=== PATIENT | male | born 1930 | race Two or more races ===

== ENCOUNTER 2017-06-28 10:17 | Inpatient (IN) | payer MEDICARE, BC ==
[~2017-06-28] VITALS: Ht 185.4 cm; Wt 79.6 kg
[2017-06-28 10:43] LABS: BASOPHILS # (AUTO) 0.4 /CMM (0.0-0.2); BASOPHILS % (AUTO) 2.2 % (0.0-2.0); EOSINOPHILS # (AUTO) 0.1 /CMM (0.0-0.7); EOSINOPHILS % (AUTO) 0.8 % (0.0-6.0); HEMATOCRIT 43 % (39-51); HEMOGLOBIN 14.6 g/dL (13.5-17.5); LYMPHOCYTES # (AUTO) 1.3 /CMM (0.8-4.8); LYMPHOCYTES % (AUTO) 7.2 % (20.0-44.0); MEAN CORPUSCULAR HEMOGLOBIN 33 PG (26.0-33.0); MEAN CORPUSCULAR HGB CONC 34 g/dl (31.0-36.0); MEAN CORPUSCULAR VOLUME 95 fL (80-96); MONOCYTES # (AUTO) 1.8 /CMM (0.1-1.30); MONOCYTES % (AUTO) 9.9 % (2.0-12.0); NEUTROPHILS # (AUTO) 14.4 /CMM (1.8-8.9); NEUTROPHILS % (AUTO) 79.9 % (43.0-81.0); PLATELET COUNT (AUTO) 445 /CMM (150-450); RDW COEFFICIENT OF VARIATION 11.9 (11.5-15.0); RED BLOOD CELL COUNT(AUTO) 4.51 MIL/uL (4.5-6.0)
--- NOTE | 2017-06-28 11:00 | NUR ---
GUERITA 86 FROM [facility], [place] FOR CP SINCE 0900 YESTERDAY, NAD NOTED, VSS, RESP EVEN AND UNLABORED, PT PUT ON GOWN AND MONITOR, AT .
[2017-06-28 11:12] LABS: PROTHROMBIN TIME 10.4 SECS (9.5-12.7)
[2017-06-28 11:15] LABS: ALANINE AMINOTRANSFERASE 13 U/L (12-78); ALBUMIN 2.5 g/dL (3.4-5.0); ALKALINE PHOSPHATASE 137 U/L (46-116); ASPARTATE AMINOTRANSFERASE 34 U/L (15-37); BILIRUBIN,TOTAL 0.5 mg/dL (0.2-1.0); CALCIUM, SERUM 9.9 mg/dL (8.5-10.1); CARBON DIOXIDE 32 mmol/L (21-32); CHLORIDE 103 mmol/L (98-107); GLUCOSE 151 mg/dL (74-106); POTASSIUM 3.5 mmol/L (3.5-5.1); SODIUM SERUM 139 mmol/L (136-145); TOTAL PROTEIN, SERUM 7.2 g/dL (6.4-8.2); UREA NITROGEN, BLOOD 24 mg/dL (7-18)
--- NOTE | 2017-06-28 11:20 | NUR ---
xray at bs
--- NOTE | 2017-06-28 12:02 | NUR ---
PT UNABLE TO PROVIDE URINE AT THIS MOMENT
[2017-06-28] MEDS ORDERED: AZITHROMYCIN 250 MG TABLET PO ONE (13:00)
[2017-06-28] MEDS ORDERED: AZITHROMYCIN 250 MG TABLET ONE ×2 (13:00→13:15)
--- NOTE | 2017-06-28 13:03 | NUR ---
URINE SENT TO LAB
[2017-06-28] MEDS ORDERED: ASPIRIN 325 MG TABLET PO ONE (13:30)
[2017-06-28 13:33] LABS: APPEARANCE,URINE Clear (CLEAR); BILIRUBIN,URINE Negative (NEGATIVE); BLOOD, URINE Negative Ery/uL (NEGATIVE); COLOR,URINE Yellow (YELLOW); KETONES,URINE Negative (NEGATIVE); LEUKOCYTE ESTERASE ,URINE Negative (NEGATIVE); NITRITE, URINE Negative (NEGATIVE); PH,URINE 5.5 (5.0-8.0); PROTEIN,URINE Negative (NEGATIVE); UGLUCOSE Negative (NEGATIVE); UROBILINOGEN,URINE 0.2 EU/dL (0.2)
[2017-06-28] MEDS ORDERED: ASPIRIN 325 MG TABLET ONE (13:57)
[2017-06-28] MEDS ORDERED: HYDROMORPHONE 1 MG/1 ML DISP.SYRIN ONE (13:58)
[2017-06-28] MEDS ORDERED: ONDANSETRON HCL/PF 4 MG/2 ML VIAL ONE (13:58)
[2017-06-28] MEDS ORDERED: HYDROMORPHONE 1 MG/1 ML DISP.SYRIN IV ONE (14:00)
[2017-06-28] MEDS ORDERED: ONDANSETRON HCL/PF 4 MG/2 ML VIAL IV ONE (14:00)
--- NOTE | 2017-06-28 16:40 | NUR ---
CALLED [facility], RN WILL CALL BACK
--- NOTE | 2017-06-28 16:46 | NUR ---
REPORT GIVEN TO ULI VELEZ FOR LUPIS
[2017-06-28 17:00] VITALS: BP 138/83
--- NOTE | 2017-06-28 17:00 | NUR ---
POLISHING WHEEL REPAIRER NOTES PATIENT ADMITTED FROM ER TELE SR-96, MALE 86Y/OLD ON DX OF PNEUMONIA, CHEST PAIN. PATIENT A/O X3/4, C/O PAIN LEFT SIDE 2/3 WHEN MOVES, IV ACCESS LINE AC AREA INTACT, SKIN ASSESSMENT DONE EDEMA LOWE BILATERAL FOOTS. PICTURE TAKEN, V/S TAKEN BP-138/83, P-88, R-20, O2-94 ROOM AIR, T-99.2. BELONGING CHECKED, NEEDS ATTENDED AND ANTICIPATED, CALL LIGHT WITHIN TO REACH, FAMILY NEXT TO THE BED. CONTINUED MONITORING.
--- NOTE | 2017-06-28 18:30 | NUR ---
RN NOTES PATIENT IN THE BED, NO ACUTE RESPIRATORY DISTRESS, PATIENT C/O PAIN 2/3 DULL LEFT FLANK AREA WHEN MOVED. PATIENT USING URINAL, NEEDS ATTENDED AND ANTICIPATED, FAMILY NEXT TO THE BED, CALL LIGHT WITHIN TO REACH. SAFETY PRECAUTION MAINTAINED ALL THE TIME. ENDORSED ONCOMING NURSE FOR CONTINUATION OF CARE.
--- NOTE | 2017-06-28 19:30 | NUR ---
FOOD SERVICE CLERK NOTES RECEIVED ON BED A/O X2-3,BREATHING NON LABORED,APPEARS CONGESTED,CRACKLES ON AUSCULTATION,SALINE LOCK LEFT AC INTACT AND PATENT.NO SKIN ISSUES.FAMILY MEMBERS AT BEDSIDE.AWAITING ADMIT ORDERS.
[2017-06-28] MEDS ORDERED: CARB-93 PO (20:31)
[2017-06-28] MEDS ORDERED: DULO20CA PO (20:31)
[2017-06-28] MEDS ORDERED: PHEN100C4 PO (20:31)
[2017-06-28] MEDS ORDERED: HYDR25TA4 PO (20:31)
[2017-06-28] MEDS ORDERED: FOLI1TAB16 PO (20:31)
[2017-06-28 20:33] VITALS: BP 137/74
[2017-06-28] MEDS ORDERED: DULOXETINE HCL 20 MG CAPSULE.DR ONE (20:54)
[2017-06-28] MEDS ORDERED: KETOROLAC TROMETHAMINE INJ 30 MG/ML VIAL IV PRN (21:00)
[2017-06-28] MEDS ORDERED: DULOXETINE HCL 30 MG CAPSULE.DR PO SCH (21:00)
[2017-06-28] MEDS ORDERED: HYDROCODONE/APAP 5/325MG 1 EACH TABLET PO PRN (21:00)
[2017-06-28] MEDS ORDERED: IPRATROPIUM NEB FS 0.5 MG/2.5 ML AMPUL.NEB ONE (21:02)
[2017-06-28] MEDS ORDERED: ALBUTEROL HALF STRENGTH 1.25 MG/3 ML VIAL.NEB ONE (21:02)
[2017-06-28] MEDS: IPRATROPIUM NEB FS 0.5 MG/2.5 ML AMPUL.NEB NEB PRN (21:05)
[2017-06-28] MEDS: ALBUTEROL HALF STRENGTH 1.25 MG/3 ML VIAL.NEB NEB PRN (21:05)
[2017-06-28] MEDS ORDERED: KETOROLAC TROMETHAMINE INJ 30 MG/ML VIAL ONE (21:10)
[2017-06-28] MEDS ORDERED: IV NS 0.9% 1,000 ML IV PRN (21:17)
[2017-06-28] MEDS ORDERED: ONDANSETRON HCL/PF 4 MG/2 ML VIAL IVP PRN (21:30)
[2017-06-28] MEDS ORDERED: ACETAMINOPHEN 325 MG TABLET PO PRN (21:30)
[2017-06-28] MEDS: AZITHROMYCIN 500 MG in IV D5W 250 ML IV SCH (21:30)
[2017-06-28] MEDS ORDERED: Z GUARD REMEDY 2 OZ OINT TP PRN (21:30)
[2017-06-28] MEDS ORDERED: ENOXAPARIN SODIUM 40 MG/0.4 ML DISP.SYRIN SQ SCH (21:30)
--- NOTE | 2017-06-28 21:30 | NUR ---
FWS FACULTY ASSISTANT NOTES APPEARS CONGESTED,DUE BREATHING TREATMENT ADMINISTERED BY RT
[2017-06-28] MEDS ORDERED: PHENYTOIN EXTENDED RELEASE 100 MG CAPSULE PO ONE (21:53)
[2017-06-28] MEDS: PHENYTOIN EXTENDED RELEASE 100 MG CAPSULE PO SCH (21:56)
[2017-06-28 22:00] VITALS: BP 137/74
--- NOTE | 2017-06-28 22:00 | NUR ---
GREEN CHAIN WORKER NOTES DUE ZITHROMAX IV HELD,ALREADY GIVEN PO 500MG IN ER
[2017-06-28] MEDS ORDERED: CEFTRIAXONE 1 G VIAL ONE (22:12)
[2017-06-28] MEDS ORDERED: ENOXAPARIN SODIUM 40 MG/0.4 ML DISP.SYRIN SQ ONE (22:13)
--- NOTE | 2017-06-28 22:15 | NUR ---
WELL DRILL OPERATOR ROTARY DRILL NOTES' STARTED ON LOVENOX 40MG,GIVEN SQ VIA LEFT LOWER ABDOMEN
[2017-06-28] MEDS: CEFTRIAXONE 1 G in IV D5W 50 ML IV SCH (22:17)
--- NOTE | 2017-06-28 22:17 | NUR ---
DETAIL SUPERVISOR NOTES STARTED ON ROCEPHIN 1GM IVPB .
[2017-06-29] VITALS (7 sets, daily range): BP systolic 121–152; BP diastolic 71–90
[2017-06-29 05:33] LABS: CHOLESTEROL 155 mg/dL (<200); HDL CHOLESTEROL 57 mg/dL (40-60); LDL 84 mg/dL (0-99); TRIGLYCERIDES 82 mg/dL (30-150)
[2017-06-29 05:37] LABS: ALANINE AMINOTRANSFERASE 65 U/L (12-78); ALBUMIN 2.6 g/dL (3.4-5.0); ALKALINE PHOSPHATASE 136 U/L (46-116); ASPARTATE AMINOTRANSFERASE 42 U/L (15-37); BILIRUBIN,TOTAL 0.7 mg/dL (0.2-1.0); CARBON DIOXIDE 32 mmol/L (21-32); CHLORIDE 104 mmol/L (98-107); CREATININE 1.1 mg/dL (0.6-1.3); GLUCOSE 106 mg/dL (74-106); PHOSPHORUS 2.7 mg/dL (2.5-4.9); POTASSIUM 4.4 mmol/L (3.5-5.1); SODIUM SERUM 143 mmol/L (136-145); TOTAL PROTEIN, SERUM 7.7 g/dL (6.4-8.2); UREA NITROGEN, BLOOD 23 mg/dL (7-18)
[2017-06-29 05:40] LABS: BASOPHILS # (AUTO) 0.1 /CMM (0.0-0.2); BASOPHILS % (AUTO) 0.3 % (0.0-2.0); EOSINOPHILS # (AUTO) 0.1 /CMM (0.0-0.7); EOSINOPHILS % (AUTO) 0.4 % (0.0-6.0); HEMATOCRIT 45 % (39-51); HEMOGLOBIN 15.1 g/dL (13.5-17.5); LYMPHOCYTES # (AUTO) 1.7 /CMM (0.8-4.8); LYMPHOCYTES % (AUTO) 8.2 % (20.0-44.0); MEAN CORPUSCULAR HEMOGLOBIN 32 PG (26.0-33.0); MEAN CORPUSCULAR HGB CONC 33 g/dl (31.0-36.0); MEAN CORPUSCULAR VOLUME 97 fL (80-96); MONOCYTES # (AUTO) 2.2 /CMM (0.1-1.30); MONOCYTES % (AUTO) 10.6 % (2.0-12.0); NEUTROPHILS % (AUTO) 80.5 % (43.0-81.0); PLATELET COUNT (AUTO) 420 /CMM (150-450); RED BLOOD CELL COUNT(AUTO) 4.68 MIL/uL (4.5-6.0); WHITE BLOOD COUNT (AUTO) 21.1 K/uL (4.3-11.0)
--- NOTE | 2017-06-29 07:00 | NUR ---
MS RN NOTES RESTING COMFORTABLY ON BED.DENIES CHEST PAIN,IVF INFUSING CALL LIGHT IN REACH,NEEDS ATTENDED.
--- NOTE | 2017-06-29 07:25 | NUR ---
CYLINDER DIE MACHINE OPERATOR OPENING NOTES PATIENT IS RESTING IN BED IN NO APPARENT DISTRESS. BEDSIDE RAILS ARE UP X2. BED IS LOCKED AND LOWERED. WILL CONTINUE TO MONITOR.
[2017-06-29] MEDS: FOLIC ACID 1 MG TABLET PO SCH (09:01)
[2017-06-29] MEDS: HYDROCHLOROTHIAZIDE 25 MG TABLET PO SCH (09:01)
[2017-06-29] MEDS: CARBIDOPA/LEVODOPA 25/100 MG 1 UDTAB PO SCH ×2 (09:02→16:10)
[2017-06-29] MEDS: IPRATROPIUM NEB FS 0.5 MG/2.5 ML AMPUL.NEB NEB PRN (10:05)
[2017-06-29] MEDS: ALBUTEROL HALF STRENGTH 1.25 MG/3 ML VIAL.NEB NEB PRN (10:05)
[2017-06-29] MEDS: DULOXETINE HCL 20 MG CAPSULE.DR PO SCH (11:25)
[2017-06-29] MEDS: PHENYTOIN EXTENDED RELEASE 100 MG CAPSULE PO SCH ×3 (11:27→22:00)
--- NOTE | 2017-06-29 19:04 | NUR ---
MS RN CLOSING NOTES PATIENT IS IN STABLE CONDITION IN NO APPARENT DISTRESS. BEDSIDE RAILS ARE UP X2. BED IS LOCKED AND LOWERED. CALL LIGHT IS WITHIN REACH. WILL ENDORSE CARE TO LAMINATED PLASTICS ASSEMBLER AND GLUER NURSE FOR LUPIS.
--- NOTE | 2017-06-29 19:10 | NUR ---
RN INITIAL NOTES PT IN BED, ASLEEP BUT CAN BE EASILY AWOKEN, NOTED WITH NO SOB, BREATHING EVEN AND UNLABORED, NO C/O PAIN AT THIS TIME, IN NO ACUTE DISTRESS. ALL PATIENT'S NEEDS ATTENDED TO. CALL LIGHT PLACED WITHIN EASY REACH. WILL CONTINUE TO MONITOR.
[2017-06-29] MEDS ORDERED: CEFTRIAXONE 1 G VIAL ONE (21:38)
[2017-06-29] MEDS ORDERED: AZITHROMYCIN 500 MG VIAL ONE (21:46)
[2017-06-29] MEDS: CEFTRIAXONE 1 G in IV D5W 50 ML IV SCH (21:57)
[2017-06-29] MEDS: ENOXAPARIN SODIUM 40 MG/0.4 ML DISP.SYRIN SQ SCH (21:59)
[2017-06-29] MEDS: AZITHROMYCIN 500 MG in IV D5W 250 ML IV SCH (22:44)
--- NOTE | 2017-06-29 22:59 | NUR ---
RN NOTES RECEIVED REPORT FROM AM SHIFT NURSE DILANTIN 100 MG WAS GIVEN IN AM. PATIENT'S ORDER IS TO RECEIVE 300 MG TOTAL IN 24HRS. CLARIFICATION OF ORDER RECEIVED TO ADMINISTER 200 MG X 1 DOSE TO COMPLETE 300 MG TOTAL FOR TODAY.
[2017-06-29] MEDS ORDERED: PHENYTOIN EXTENDED RELEASE 100 MG CAPSULE PO ONE (23:00)
[2017-06-30] VITALS: BP 127/81
[2017-06-30 04:00] VITALS: BP 137/81
--- NOTE | 2017-06-30 06:51 | NUR ---
RN CLOSING NOTES PATIENT IN BED, ALERT AND ORIENTED X 3, ABLE TO MAKE NEEDS KNOWN, NOTED WITH NO SOB, BREATHING EVEN AND UNLABORED. PATIENT WITH NO C/O PAIN AND IN NO ACUTE DISTRESS. ON TELE MONITORING WITH SR @ 85 BPM ALL PATIENT'S NEEDS ATTENDED TO. PATIENT IS AWARE OF SAFETY NEEDS. BED PLACED IN LOW POSITION, LOCKED IN PLACE. CALL LIGHT PLACED WITHIN EASY REACH.
--- NOTE | 2017-06-30 08:00 | NUR ---
RN OPENING NOTES PATIENT IN BED, AWAKE, VERBALLY RESPONSIVE, HOB ELEVATED .NO ACUTE DISTRESS NOTED. DENIED ANY PAIN AT THIS TIME. IV ACCESS PATENT AND INTACT. NO REDNESS, NO S/SX OF INFILTRATION NOTED. CALL LIGHT PLACED WITHIN REACH. SAFETY MEASURES IN PLACE. WILL CONTINUE TO MONITOR ACCORDINGLY.
[2017-06-30 08:14] LABS: BASOPHILS % (AUTO) 0.2 % (0.0-2.0); EOSINOPHILS # (AUTO) 0.2 /CMM (0.0-0.7); EOSINOPHILS % (AUTO) 0.9 % (0.0-6.0); HEMATOCRIT 44 % (39-51); HEMOGLOBIN 14.9 g/dL (13.5-17.5); LYMPHOCYTES # (AUTO) 1.8 /CMM (0.8-4.8); LYMPHOCYTES % (AUTO) 7.7 % (20.0-44.0); MEAN CORPUSCULAR HEMOGLOBIN 33 PG (26.0-33.0); MEAN CORPUSCULAR HGB CONC 34 g/dl (31.0-36.0); MEAN CORPUSCULAR VOLUME 95 fL (80-96); MONOCYTES % (AUTO) 8.7 % (2.0-12.0); NEUTROPHILS # (AUTO) 19.2 /CMM (1.8-8.9); NEUTROPHILS % (AUTO) 82.5 % (43.0-81.0); PLATELET COUNT (AUTO) 250 /CMM (150-450); RED BLOOD CELL COUNT(AUTO) 4.57 MIL/uL (4.5-6.0); WHITE BLOOD COUNT (AUTO) 23.2 K/uL (4.3-11.0)
[2017-06-30] MEDS: DULOXETINE HCL 20 MG CAPSULE.DR PO SCH (09:20)
[2017-06-30] MEDS: HYDROCHLOROTHIAZIDE 25 MG TABLET PO SCH (09:21)
[2017-06-30] MEDS: FOLIC ACID 1 MG TABLET PO SCH (09:22)
[2017-06-30] MEDS: CARBIDOPA/LEVODOPA 25/100 MG 1 UDTAB PO SCH ×2 (09:22→16:53)
[2017-06-30 09:28] LABS: CALCIUM, SERUM 9.7 mg/dL (8.5-10.1); CARBON DIOXIDE 31 mmol/L (21-32); CHLORIDE 103 mmol/L (98-107); CREATININE 0.8 mg/dL (0.6-1.3); GLUCOSE 115 mg/dL (74-106); MAGNESIUM 1.8 mg/dL (1.8-2.4); PHOSPHORUS 2.5 mg/dL (2.5-4.9); POTASSIUM 3.8 mmol/L (3.5-5.1); SODIUM SERUM 140 mmol/L (136-145); UREA NITROGEN, BLOOD 18 mg/dL (7-18)
[2017-06-30 10:04] VITALS: BP 144/77
[2017-06-30 11:23] LABS: EOSINOPHILS % (MANUAL) 1 % (0-4); LYMPHOCYTES % (MANUAL) 13 % (16-48); MONOCYTES % (MANUAL) 1 % (0-11.0); NEUTROPHILS % (MANUAL) 85 (42-76)
[2017-06-30 12:00] VITALS: BP 151/90
--- NOTE | 2017-06-30 18:00 | NUR ---
RN CLOSING NOTES PATIENT IN BED,EYES CLOSED, AROUSABLE, VERBALLY RESPONSIVE, HOB ELEVATED. NO SOB NOTED. NO ACUTE DISTRESS NOTED. DENIED ANY PAIN ,NO FACIAL GRIMACING NOTED. IV ACCESS PATENT AND INTACT. NO REDNESS, NO S/SX OF INFILTRATION NOTED. DUE MEDICATIONS GIVEN, NO ASE NOTED. NEEDS ATTENDED. CALL LIGHT PLACED WITHIN REACH. SAFETY MEASURES IN PLACE. WILL CONTINUE TO MONITOR ACCORDINGLY.WILL ENDORSE TO NATURAL RESOURCE SPECIALIST FOR CONTINUITY OF CARE.
[2017-06-30 20:00] VITALS: BP 147/66
--- NOTE | 2017-06-30 20:00 | NUR ---
MS RN OPENING NOTES: RECEIVED PATIENT IN BED, ASLEEP, EASILY AROUSES, NO COMPLAINS OF PAIN OR DISCOMFORT THIS TIME OF ASSESSMENT. PATIENT WITH IV HEPLOCK ON LEFT AC G#18- FLUSHING GOOD. REALITY ORIENTATION DONE. NO SIGNS OF REDNESS OR INFECTION ON SITE. NO PHLEBITIS NOTED THIS TIME. SAFETY AND FALL PRECAUTIONS OBSERVED. PATIENT IS WITH O2 AT 2LP VIA NASAL CANNULA, SATURATING AT 95%. KEPT PATIENT WARM AND DRY. WILL CONTINUE TO MONITOR PATIENT.
[2017-06-30] MEDS: PHENYTOIN EXTENDED RELEASE 100 MG CAPSULE PO SCH (22:03)
[2017-06-30] MEDS: ENOXAPARIN SODIUM 40 MG/0.4 ML DISP.SYRIN SQ SCH (22:06)
[2017-06-30] MEDS: CEFTRIAXONE 1 G in IV D5W 50 ML IV SCH (22:09)
[2017-06-30] MEDS: AZITHROMYCIN 500 MG in IV D5W 250 ML IV SCH (22:39)
--- NOTE | 2017-07-01 | NUR ---
MS RN NOTES: PATIENT IN BED, ASLEEP THIS TIME. NO SIGNS OF PAIN OR DISCOMFORT THIS TIME.
--- NOTE | 2017-07-01 06:46 | NUR ---
MS RN NOTES: PATIENT ON BED, AWAKE, NO COMPLAINS OF PAIN OR DISCOMFORT THIS TIME, HEPLOCK IN PLACE ON LEFT AC G#18. NO SIGNS OF INFILTRATION THIS TIME. WILL ENDORSE PATIENT TO DAY SHIFT NURSE.
--- NOTE | 2017-07-01 07:46 | NUR ---
RN OPENING NOTES RECIEVED PATIENT RESTING COMFORTABLY IN BED. AOX3. NO ACUTE DISTRESS. RESPIRATIONS EVEN AND UNLABORED. DENIES ANY PAIN, CP, AND SOB. THICKEN LIQUIDS REQUIRED. LAC 18G PATENT AND INTACT. SATURATING ADEQUATELY ON RA. BED LOCKED IN THE LOWEST POSITION WITH SIDE RAILS UP X2, CALL LIGHT WITHIN REACH. WILL CONTINUE TO MONITOR, ASSESS AND EDUCATE PATIENT THROUHGOUT SHIFT.
[2017-07-01 07:48] LABS: BASOPHILS # (AUTO) 0.1 /CMM (0.0-0.2); BASOPHILS % (AUTO) 0.3 % (0.0-2.0); EOSINOPHILS # (AUTO) 0.4 /CMM (0.0-0.7); EOSINOPHILS % (AUTO) 2.1 % (0.0-6.0); HEMATOCRIT 44 % (39-51); HEMOGLOBIN 14.9 g/dL (13.5-17.5); LYMPHOCYTES # (AUTO) 1.4 /CMM (0.8-4.8); LYMPHOCYTES % (AUTO) 8.4 % (20.0-44.0); MEAN CORPUSCULAR HEMOGLOBIN 33 PG (26.0-33.0); MEAN CORPUSCULAR HGB CONC 34 g/dl (31.0-36.0); MEAN CORPUSCULAR VOLUME 98 fL (80-96); MONOCYTES # (AUTO) 1.6 /CMM (0.1-1.30); MONOCYTES % (AUTO) 9.6 % (2.0-12.0); NEUTROPHILS # (AUTO) 13.4 /CMM (1.8-8.9); NEUTROPHILS % (AUTO) 79.6 % (43.0-81.0); PLATELET COUNT (AUTO) 386 /CMM (150-450); RDW COEFFICIENT OF VARIATION 12.7 (11.5-15.0); RED BLOOD CELL COUNT(AUTO) 4.46 MIL/uL (4.5-6.0); WHITE BLOOD COUNT (AUTO) 16.8 K/uL (4.3-11.0)
[2017-07-01 08:00] VITALS: BP 106/60
[2017-07-01 08:33] LABS: CARBON DIOXIDE 32 mmol/L (21-32); CHLORIDE 100 mmol/L (98-107); CREATININE 0.9 mg/dL (0.6-1.3); GLUCOSE 108 mg/dL (74-106); MAGNESIUM 1.9 mg/dL (1.8-2.4); PHOSPHORUS 2.5 mg/dL (2.5-4.9); POTASSIUM 3.4 mmol/L (3.5-5.1); SODIUM SERUM 136 mmol/L (136-145); UREA NITROGEN, BLOOD 20 mg/dL (7-18)
[2017-07-01] MEDS: FOLIC ACID 1 MG TABLET PO SCH (09:38)
[2017-07-01] MEDS: CARBIDOPA/LEVODOPA 25/100 MG 1 UDTAB PO SCH ×2 (09:38→16:57)
[2017-07-01] MEDS: DULOXETINE HCL 20 MG CAPSULE.DR PO SCH (09:38)
[2017-07-01] MEDS: HYDROCHLOROTHIAZIDE 25 MG TABLET PO SCH (09:52)
[2017-07-01] MEDS ORDERED: POTASSIUM CHLORIDE 20 MEQ TAB.PRT.SR PO SCH (10:30)
[2017-07-01] MEDS ORDERED: POTASSIUM CHLORIDE 20 MEQ TAB.PRT.SR PO ONE (11:00)
[2017-07-01 16:00] VITALS: BP 110/60
--- NOTE | 2017-07-01 19:30 | NUR ---
RN NOTES RECEIVED PATIENT IN BED AWAKE, AO X 3, ABLE TO MAKE NEEDS KNOWN. NO ACUTE DISTRESS. DENIES ANY PAIN AT THIS TIME. IV SITE PATENT, INTACT; FLUSHED. SAFETY REMINDERS GIVEN. ON LOW BED WITH BILATERAL UPPER SIDE RAILS UP. CALL PENA WITHIN EASY REACH. WILL CONTINUE TO MONITOR.
[2017-07-01 20:00] VITALS: BP 125/85
[2017-07-01] MEDS: CEFTRIAXONE 1 G in IV D5W 50 ML IV SCH (21:35)
[2017-07-01] MEDS: PHENYTOIN EXTENDED RELEASE 100 MG CAPSULE PO SCH (21:35)
[2017-07-01] MEDS: ENOXAPARIN SODIUM 40 MG/0.4 ML DISP.SYRIN SQ SCH (21:35)
--- NOTE | 2017-07-01 22:10 | NUR ---
RN CLOSING NOTES PATIENT RESTING COMFORTABLY IN BED. AOX3. STABLE. RESPIRATIONS EVEN AND UNLABORED. NO ACUTE DISTRESS. ALL NEEDS MET ALL MEDS GIVEN APPROPRIATE. WILL ENDORSE TO NIGHT RN FOR LUPIS.
[2017-07-01] MEDS: AZITHROMYCIN 500 MG in IV D5W 250 ML IV SCH (22:26)
--- NOTE | 2017-07-02 06:00 | NUR ---
RN NOTES PATIENT ASLEEP, EASILY AROUSABLE. RESPIRATIONS EVEN. NO SIGNS OF PAIN NOTED. DUE MEDS GIVEN WITH NO ASE NOTED. NEEDS ATTENDED. SAFETY PRECAUTIONS AND COMFORT MEASURES IN PLACE. WILL GIVE REPORT TO DAY SHIFT FOR CONTINUITY OF CARE.
[2017-07-02 08:00] VITALS: BP 133/71
--- NOTE | 2017-07-02 08:00 | NUR ---
RN NOTES PATIENT SEEN IN THE BED, A/O X3, PATIENT HAS NO RESPIRATORY DISTRESS, REDIRECTABLE, NO C/O PAIN AT THIS TIME, V/S TAKEN STABLE, SCHEDULED MEDICATION ADMINISTERED, PATIENT TURN AND REPOSITION SELF IN THE BED, NEEDS ATTENDED AND ANTICIPATED, CALL LIGHT WITHIN TO REACH, CONTINUED MONITORING.
[2017-07-02 08:29] LABS: BASOPHILS # (AUTO) 0.1 /CMM (0.0-0.2); BASOPHILS % (AUTO) 0.4 % (0.0-2.0); EOSINOPHILS # (AUTO) 0.3 /CMM (0.0-0.7); HEMATOCRIT 46 % (39-51); HEMOGLOBIN 15.9 g/dL (13.5-17.5); LYMPHOCYTES # (AUTO) 1.4 /CMM (0.8-4.8); LYMPHOCYTES % (AUTO) 9.6 % (20.0-44.0); MEAN CORPUSCULAR HEMOGLOBIN 34 PG (26.0-33.0); MEAN CORPUSCULAR HGB CONC 35 g/dl (31.0-36.0); MEAN CORPUSCULAR VOLUME 96 fL (80-96); MONOCYTES # (AUTO) 1.4 /CMM (0.1-1.30); MONOCYTES % (AUTO) 9.5 % (2.0-12.0); NEUTROPHILS # (AUTO) 11.9 /CMM (1.8-8.9); NEUTROPHILS % (AUTO) 78.5 % (43.0-81.0); PLATELET COUNT (AUTO) 436 /CMM (150-450); RDW COEFFICIENT OF VARIATION 11.8 (11.5-15.0); RED BLOOD CELL COUNT(AUTO) 4.73 MIL/uL (4.5-6.0); WHITE BLOOD COUNT (AUTO) 15.1 K/uL (4.3-11.0)
[2017-07-02 08:33] LABS: CALCIUM, SERUM 10.1 mg/dL (8.5-10.1); CARBON DIOXIDE 32 mmol/L (21-32); CHLORIDE 101 mmol/L (98-107); CREATININE 0.9 mg/dL (0.6-1.3); GLUCOSE 103 mg/dL (74-106); MAGNESIUM 1.9 mg/dL (1.8-2.4); PHOSPHORUS 2.3 mg/dL (2.5-4.9); POTASSIUM 3.8 mmol/L (3.5-5.1); SODIUM SERUM 138 mmol/L (136-145); UREA NITROGEN, BLOOD 22 mg/dL (7-18)
[2017-07-02] MEDS: FOLIC ACID 1 MG TABLET PO SCH (09:35)
[2017-07-02] MEDS: DULOXETINE HCL 20 MG CAPSULE.DR PO SCH (09:36)
[2017-07-02] MEDS: HYDROCHLOROTHIAZIDE 25 MG TABLET PO SCH (09:36)
[2017-07-02] MEDS: CARBIDOPA/LEVODOPA 25/100 MG 1 UDTAB PO SCH (09:36)
[2017-07-02 10:00] VITALS: BP 133/71
[2017-07-02] MEDS ORDERED: AZIT250T13 PO (11:11)
[2017-07-02] MEDS ORDERED: AMOX875T2 PO (11:11)
--- NOTE | 2017-07-02 12:00 | NUR ---
RN NOTES PATIENT WITH THE PT, NO C/O PAIN, CONTINUED MONITORING.
--- NOTE | 2017-07-02 12:31 | NUR ---
RN NOTES PATIENT GOING TO D/C SNF. NEXT TO THE BED, CONTINUED MONITORING.
--- NOTE | 2017-07-02 14:30 | NUR ---
DISCHARGE NOTES PATIENT D/C AT THIS TIME [facility], PATIENT MED COMPLIANT, V/S STABLE, NO C/O PAIN AT THIS TIME. MED RECONCILIATION AND DISCHARGE ORDER REVIEWED AND EXPLAINED TO PATIENT AND DAUGHTER. DAUGHTER VERBALIZED UNDERSTANDING. BELONGING RETURNED BACK TO THE PATIENT. PATIENT WIRE ROPE FABRICATION SUPERVISOR BY DAUGHTER, AND . ESCORTED PATIENT TO THE LOBBY FOR SAFETY.
== END 2017-07-02 14:30 | DRG 280 ==
LOC: ER 10:18 → TELE 16:52 → MED 06-30 15:34
PROVIDERS: ADMIT Nurse Practitioner Acute Care; ATTEND Nurse Practitioner Acute Care
DX: I21.A1 Myocardial infarction type 2 (principal); J15.9 Unspecified bacterial pneumonia; G20 Parkinson's disease; E11.9 Type 2 diabetes mellitus without complications; G40.909 Epilepsy, unspecified, not intractable, without status epilepticus; R09.1 Pleurisy; F32.9 Major depressive disorder, single episode, unspecified; K21.9 Gastro-esophageal reflux disease without esophagitis; Z85.72 Personal history of non-Hodgkin lymphomas; Z79.899 Other long term (current) drug therapy
CPT/HCPCS: 36415; 71045; 80048-TC; 80053-TC; 80061-TC; 81000-TC; 83605-TC; 83735-TC; 84100-TC; 84443-TC; 84484-TC; 85025-TC; 85730-TC; 87040-TC; 87081-TC; 92526; 92611-TC; 93307-TC; J0456; J0696; J1170; J1650; J1885; J2405; J7030; J7040; J7060; Z7610